=== PATIENT | male | born 1990 | race Caucasian/White ===

== ENCOUNTER 2020-05-05 03:46 | Emergency (ER) | payer SELFPAY ==
[2020-05-05] MEDS ORDERED: ALBUTEROL 2.5 MG/3 ML NEB SOL ONE (04:24)
[2020-05-05] MEDS ORDERED: IPRATROPIUM BROM 0.5MG/2.5ML ONE (04:24)
[2020-05-05] MEDS ORDERED: predniSONE 20 MG TAB ONE (04:32)
--- NOTE | 2020-05-05 05:42 | ER ---
Nurse's Notes [facility] Name: Kishor Hagen Age: 30 yrs Sex: Male : 1990 Arrival Date: 05/05/2020 Time: 03:47 Bed 5 Private MD: Diagnosis: Asthma Exacerbation Presentation: 05/05 04:07 Chief complaint: Patient states: Reports breathing difficulty x 3 days, hx of asthma; lp1 States shortness of breath, dry cough; Denies fever. Coronavirus screen: cough unrelated to allergies, difficulty breathing. Ebola Screen: No symptoms or risks identified at this time. Initial Sepsis Screen: Does the patient meet any 2 criteria? No. Patient's initial sepsis screen is negative. Does the patient have a suspected source of infection? No. Patient's initial sepsis screen is negative. Risk Assessment: Do you want to hurt yourself or someone else? Patient reports no desire to harm self or others. Onset of symptoms was May 05, 2020. 04:07 Method Of Arrival: Ambulatory lp1 04:07 Acuity: OMAIRA 3 lp1 Historical: - Allergies: 04:09 No Known Allergies; lp1 - Home Meds: 04:09 None [Active]; lp1 - PMHx: 04:09 Anxiety; Bipolar disorder; Asthma; Hepatitis; lp1 - PSHx: 04:09 None; lp1 - Immunization history:: Adult Immunizations up to date. - Social history:: Smoking status: Patient reports the use of cigarette tobacco products, smokes one pack cigarettes per day. Screenin:10 Abuse screen: Denies threats or abuse. Denies injuries from another. Nutritional lp1 screening: No deficits noted. Tuberculosis screening: No symptoms or risk factors identified. Fall Risk None identified. Assessment: 04:09 General: Appears in no apparent distress. Behavior is appropriate for age. Pain: Denies lp1 pain. Neuro: Level of Consciousness is awake, alert, obeys commands, Oriented to person, place, time, situation. Cardiovascular: Patient's skin is warm and dry. Respiratory: Reports shortness of breath on exertion cough that is dry, Airway is patent Trachea midline Respiratory effort is even, Respiratory pattern is regular, Breath sounds are clear bilaterally. GI: No signs and/or symptoms were reported involving the gastrointestinal system. : No signs and/or symptoms were reported regarding the genitourinary system. EENT: No signs and/or symptoms were reported regarding the EENT system. Derm: Skin is pink, warm \T\ dry. Musculoskeletal: No deficits noted. 05:30 Reassessment: Patient appears in no apparent distress at this time. Patient and/or mg2 family updated on plan of care and expected duration. Pain level reassessed. Patient is alert, oriented x 3, equal unlabored respirations, skin warm/dry/pink. Vital Signs: 04:07 BP 154 / 98; Pulse 75; Resp 20; Temp 98(O); Pulse Ox 100% on R/A; Weight 90.72 kg (R); lp1 Height 5 ft. 11 in. (180.34 cm); 05:30 BP 122 / 73; Pulse 76; Resp 18; Pulse Ox 99% on R/A; mg2 04:07 Body Mass Index 27.89 (90.72 kg, 180.34 cm) lp1 ED Course: 03:47 Patient arrived in ED. bp1 03:54 Daquan Garcia MD is Attending Physician. [facility] 04:07 Gregoria Hancock, RN is Primary Nurse. lp1 04:09 Triage completed. lp1 04:09 Arm band placed on. lp1 04:11 Patient has correct armband on for positive identification. lp1 04:15 No provider procedures requiring assistance completed. Flu and/or RSV swab sent to lab. mg2 Strep swab sent to lab. Patient did not have IV access during this emergency room visit. 04:22 Chest Single View XRAY In Process Unspecified. EDMS Administered Medications: 04:15 Drug: Albuterol - atroVENT (3:1) (2.5 mg - 0.5 mg) 3 ml Route: Nebulizer; mg2 05:48 Follow up: Response: No adverse reaction mg2 04:22 Drug: predniSONE 60 mg Route: PO; mg2 05:48 Follow up: Response: No adverse reaction mg2 Outcome: 05:40 Discharge ordered by . [facility] 05:51 Discharged to home ambulatory. lp1 05:51 Condition: good 05:51 Discharge instructions given to patient, Instructed on discharge instructions, follow up and referral plans. medication usage, Demonstrated understanding of instructions, follow-up care, medications, Prescriptions given X 3. 05:51 Patient left the ED. lp1 Signatures: Dispatcher [employer] EDGregoria Figueroa, DENNIS RN lp1 Kit Minor, DENNIS RN mg2 Kary Zamudio Maurice, MD MD 7 Corrections: (The following items were deleted from the chart) 05:32 05:30 Pulse 76bpm; Resp 18bpm; Pulse Ox 99% RA; mg2 mg2 05:50 05:50 BP 120 / 72; Pulse 70bpm; Resp 18bpm; Pulse Ox 100% RA; lp1 lp1
--- NOTE | 2020-05-05 05:42 | EDPHYS ---
Physician Documentation [facility] Name: Kishor Hagen Age: 30 yrs Sex: Male : 1990 Arrival Date: 05/05/2020 Time: 03:47 Bed 5 Private MD: ED Physician Daquan Garcia HPI: 05/05 04:18 This 30 yrs old Male presents to ER via Ambulatory with complaints of mh7 Breathing Difficulty. 04:18 The patient has shortness of breath with light activity. Onset: The symptoms/episode mh7 began/occurred 3 day(s) ago. Duration: The symptoms are continuous. 04:19 The patient's shortness of breath is aggravated by coughing, light activity, is mh7 alleviated by nothing. Associated signs and symptoms: Pertinent positives: productive cough, Pertinent negatives: chest pain, diaphoresis, dizziness, fever, hemoptysis, loss of consciousness, nausea, numbness in extremities, visual changes, vomiting. Severity of symptoms: At their worst the symptoms were moderate yesterday, in the emergency department the symptoms are unchanged. The patient has experienced similar episodes in the past, multiple times. Historical: - Allergies: 04:09 No Known Allergies; lp1 - Home Meds: 04:09 None [Active]; lp1 - PMHx: 04:09 Anxiety; Bipolar disorder; Asthma; Hepatitis; lp1 - PSHx: 04:09 None; lp1 - Immunization history:: Adult Immunizations up to date. - Social history:: Smoking status: Patient reports the use of cigarette tobacco products, smokes one pack cigarettes per day. ROS: 04:19 Constitutional: Negative for fever, chills, and weight loss, Eyes: Negative for injury, mh7 pain, redness, and discharge, ENT: Negative for injury, pain, and discharge, Neck: Negative for injury, pain, and swelling, Cardiovascular: Negative for chest pain, palpitations, and edema, Abdomen/GI: Negative for abdominal pain, nausea, vomiting, diarrhea, and constipation, Back: Negative for injury and pain, : Negative for injury, bleeding, discharge, and swelling, MS/Extremity: Negative for injury and deformity, Skin: Negative for injury, rash, and discoloration, Neuro: Negative for headache, weakness, numbness, tingling, and seizure, Psych: Negative for depression, anxiety, suicide ideation, homicidal ideation, and hallucinations, Allergy/Immunology: Negative for hives, rash, and allergies, Endocrine: Negative for neck swelling, polydipsia, polyuria, polyphagia, and marked weight changes, Hematologic/Lymphatic: Negative for swollen nodes, abnormal bleeding, and unusual bruising. Exam: 04:19 Constitutional: This is a well developed, well nourished patient who is awake, alert, mh7 and in no acute distress. Head/Face: Normocephalic, atraumatic. Eyes: Pupils equal round and reactive to light, extra-ocular motions intact. Lids and lashes normal. Conjunctiva and sclera are non-icteric and not injected. Cornea within normal limits. Periorbital areas with no swelling, redness, or edema. Neck: Trachea midline, no thyromegaly or masses palpated, and no cervical lymphadenopathy. Supple, full range of motion without nuchal rigidity, or vertebral point tenderness. No Meningismus. Chest/axilla: Normal chest wall appearance and motion. Nontender with no deformity. No lesions are appreciated. Cardiovascular: Regular rate and rhythm with a normal S1 and S2. No gallops, murmurs, or rubs. Normal PMI, no JVD. No pulse deficits. 04:19 Abdomen/GI: Soft, non-tender, with normal bowel sounds. No distension or tympany. No guarding or rebound. No evidence of tenderness throughout. Back: No spinal tenderness. No costovertebral tenderness. Full range of motion. Skin: Warm, dry with normal turgor. Normal color with no rashes, no lesions, and no evidence of cellulitis. MS/ Extremity: Pulses equal, no cyanosis. Neurovascular intact. Full, normal range of motion. Neuro: Awake and alert, GCS 15, oriented to person, place, time, and situation. Cranial nerves II-XII grossly intact. Motor strength 5/5 in all extremities. Sensory grossly intact. Cerebellar exam normal. Normal gait. Psych: Awake, alert, with orientation to person, place and time. Behavior, mood, and affect are within normal limits. 04:19 Respiratory: the patient does not display signs of respiratory distress, Respirations: prolonged exhalation, that is mild, Breath sounds: rhonchi, that are mild, are scattered, wheezing: expiratory that is mild, is scattered, Respiratory rate: 20 Vital Signs: 04:07 BP 154 / 98; Pulse 75; Resp 20; Temp 98(O); Pulse Ox 100% on R/A; Weight 90.72 kg (R); lp1 Height 5 ft. 11 in. (180.34 cm); 05:30 BP 122 / 73; Pulse 76; Resp 18; Pulse Ox 99% on R/A; mg2 04:07 Body Mass Index 27.89 (90.72 kg, 180.34 cm) lp1 MDM: 04:06 Patient medically screened. [facility] 05:38 Differential diagnosis: Anemia Anxiety Reaction asthma, Bronchitis pneumonia, reactive [facility] airway disease. Data reviewed: vital signs, nurses notes, lab test result(s), Flu: negative radiologic studies, plain films. Data interpreted: Pulse oximetry: on room air is 99 %. Interpretation: normal. Counseling: I had a detailed discussion with the patient and/or guardian regarding: the historical points, exam findings, and any diagnostic results supporting the discharge/admit diagnosis, lab results, radiology results, the need for outpatient follow up, to return to the emergency department if symptoms worsen or persist or if there are any questions or concerns that arise at home. Response to treatment: the patient's symptoms have resolved after treatment, the patient's blood pressure is in an acceptable range, mental status has returned to baseline, the patient no longer shows bradycardia, the patient is not short of breath, the patient is not tachycardic, the patient's pain is gone, the patient's temperature has normalized. 05/05 04:09 Order name: Influenza Screen (a \T\ B) [facility] 05/05 04:09 Order name: Strep [facility] 05/05 04:08 Order name: Chest Single View XRAY [facility] 05/05 05:40 Order name: Throat Culture EDMS Administered Medications: 04:15 Drug: Albuterol - atroVENT (3:1) (2.5 mg - 0.5 mg) 3 ml Route: Nebulizer; mg2 05:48 Follow up: Response: No adverse reaction mg2 04:22 Drug: predniSONE 60 mg Route: PO; mg2 05:48 Follow up: Response: No adverse reaction mg2 Disposition: 05/05/20 05:40 Discharged to Home. Impression: Asthma Exacerbation. - Condition is Stable. - Discharge Instructions: Asthma, Adult, [id number]. - Prescriptions for Tessalon Perles 100 mg Oral Capsule - take 1 capsule by ORAL route every 8 hours As needed; 15 capsule. Prednisone 20 mg Oral Tablet - take 2 tablet by ORAL route once daily for 5 days; 10 tablet. Albuterol Sulfate 90 mcg/actuation - inhale 1-2 puff by INHALATION route every 4-6 hours; 1 Inhaler. - Medication Reconciliation Form, Thank You Letter, Antibiotic Education, Prescription Opioid Use form. - Follow up: Private Physician; When: 1 - 2 days; Reason: Worsening of condition, Recheck today's complaints, Continuance of care, Re-evaluation by your physician. - Problem is an acute exacerbation. - Symptoms have improved. Signatures: Dispatcher [employer] EDMS Gregoria Hancock RN RN lp1 Kit Minor RN RN mg2 Daquan Garcia MD MD mh7 Corrections: (The following items were deleted from the chart) 05:51 05:40 05/05/2020 05:40 Discharged to Home. Impression: Asthma Exacerbation. Condition lp1 is Stable. Forms are Medication Reconciliation Form, Thank You Letter, Antibiotic Education, Prescription Opioid Use. Follow up: Private Physician; When: 1 - 2 days; Reason: Worsening of condition, Recheck today's complaints, Continuance of care, Re-evaluation by your physician. Problem is an acute exacerbation. Symptoms have improved. mh7
[2020-05-05 05:57] VITALS: TEMP 98
[2020-05-05 05:58] VITALS: BP 122/73; O2SAT 99
--- NOTE | 2020-05-05 08:11 | RAD REPORT ---
EXAM DESCRIPTION: Sarina Single View05/05/2020 4:22 am CLINICAL HISTORY: Cough COMPARISON: 2016 FINDINGS: The lungs appear clear of acute infiltrate. The heart is normal size IMPRESSION: No acute abnormalities displayed
== END 2020-05-05 05:51 | disposition home or self-care (01) ==
LOC: ER 03:46
DX: J45.901 Unspecified asthma with (acute) exacerbation (principal); F17.210 Nicotine dependence, cigarettes, uncomplicated
CPT/HCPCS: 71045; 87070; 87081; 87804; 99284; J7512

== ENCOUNTER 2020-05-09 12:45 | Emergency (ER) | payer SELFPAY ==
[2020-05-09] MEDS ORDERED: NA CHLORIDE 0.9% 1,000 ML ONE (13:15)
[2020-05-09 13:35] LABS: BUN Blood Urea Nitrogen 8 mg/dL (7-18); Bicarbonate 30 mmol/L (21-32); Glucose Level 126 mg/dL (74-106); Potassium 3.8 mmol/L (3.5-5.1); Sodium Level 140 mmol/L (136-145)
[2020-05-09 13:57] LABS: Absolute Lymphocytes (CBC) 2.1 K/uL (0.7-4.9); Basophils % 0.5 % (0-1.3); Hematocrit 37.2 % (39.6-49.0); Lymphocytes % 20.7 % (15.3-44.8); MPV 7.2 fL (7.6-11.3); RBC Red Blood Cell Count 4.07 M/uL (4.33-5.43)
--- NOTE | 2020-05-09 18:26 | EDPHYS ---
Physician Documentation [facility] Name: Kishor Hagen Age: 30 yrs Sex: Male : 1990 Arrival Date: 05/09/2020 Time: 12:48 Bed 19 Private MD: ED Physician Cooper Wolff HPI: 05/09 13:27 This 30 yrs old Male presents to ER via EMS with complaints of sleepy. rn 13:27 The patient presents with decreased responsiveness. Onset: The symptoms/episode rn began/occurred today. Possible causes: drug use. Associated signs and symptoms: Pertinent negatives: abdominal pain, chest pain, combativeness, confusion, headache, seizure, shortness of breath, vertigo, vomiting, weakness. Current symptoms: In the emergency department the patient's symptoms are unchanged from the initial presentation. It is unknown whether or not the patient has had similar symptoms in the past. The patient has not recently seen a physician. Pt reports taking Ambien x 2 and drinking ETOH earlier today, no trauma, reports feels sleepy, not sure who called 911, narcan tried without effect. Pt denies pain. No fever/cough/sob/chest pain/abd pain/vomiting/diarrhea. . Historical: - Allergies: 12:52 No Known Allergies; ss - PMHx: 12:52 Anxiety; Asthma; Bipolar disorder; Hepatitis; ss - PSHx: 12:52 None; ss - Immunization history:: Adult Immunizations unknown. - Social history:: Patient uses alcohol, street drugs, marijuana, Smoking status: . - Family history:: not pertinent. - Hospitalizations: : No recent hospitalization is reported. ROS: 13:27 Constitutional: Negative for fever, chills, and weight loss, Eyes: Negative for injury, rn pain, redness, and discharge, ENT: Negative for injury, pain, and discharge, Neck: Negative for injury, pain, and swelling, Cardiovascular: Negative for chest pain, palpitations, and edema, Respiratory: Negative for shortness of breath, cough, wheezing, and pleuritic chest pain, Abdomen/GI: Negative for abdominal pain, nausea, vomiting, diarrhea, and constipation, Back: Negative for injury and pain, : Negative for injury, bleeding, discharge, and swelling, MS/Extremity: Negative for injury and deformity, Skin: Negative for injury, rash, and discoloration, Neuro: Negative for headache, weakness, numbness, tingling, and seizure. Exam: 13:27 Constitutional: This is a well developed, well nourished patient who is somnolent but rn awakens to voice and tactile stimulation. Head/Face: Normocephalic, atraumatic. Eyes: Pupils equal round and reactive to light, extra-ocular motions intact. Periorbital areas with no swelling, redness, or edema. ENT: dry MM Neck: Trachea midline, no thyromegaly or masses palpated, and no cervical lymphadenopathy. Supple, full range of motion without nuchal rigidity, or vertebral point tenderness. No Meningismus. Cardiovascular: Regular rate and rhythm. No pulse deficits. Respiratory: Slow respiratory rate, speaking full sentences. Abdomen/GI: soft, non-tender MS/ Extremity: Pulses equal, no cyanosis. Neurovascular intact. Full, normal range of motion. Equal circumference. Neuro: Awake, somnolent, moving all 4 extremities Vital Signs: 12:48 BP 126 / 80; Pulse 96; Resp 11; Temp 98.1(TE); Pulse Ox 96% on R/A; Weight 90.72 kg; ss Pain 0/10; 13:36 BP 141 / 70; Pulse 77; Resp 12; Pulse Ox 99% on 2 lpm NC; ss 14:25 BP 121 / 92; Pulse 72; Resp 12; Pulse Ox 96% on 2 lpm NC; tw2 15:16 BP 124 / 93; Pulse 76; Resp 12; Pulse Ox 100% on 2 lpm NC; tw2 16:10 BP 112 / 79; Pulse 72; Resp 10; Pulse Ox 100% on 2 lpm NC; tw2 17:20 BP 120 / 87; Pulse 75; Resp 14; Pulse Ox 100% on 2 lpm NC; tw2 18:14 BP 131 / 91; Pulse 76; Resp 15; Pulse Ox 97% on R/A; tw2 MDM: 12:48 Patient medically screened. rn 13:27 ED course: Per report, patient went ot convenience store earlier and sent away due to rn signs of intoxication, then when came back to store, police called, who called for EMS given drowsiness. . 18:13 Differential Diagnosis: overdose, volume depletion, drug use, ETOH intoxication. Data rn reviewed: vital signs, nurses notes, lab test result(s), and as a result, I will discharge patient. Counseling: I had a detailed discussion with the patient and/or guardian regarding: the historical points, exam findings, and any diagnostic results supporting the discharge/admit diagnosis, lab results, the need for outpatient follow up, to return to the emergency department if symptoms worsen or persist or if there are any questions or concerns that arise at home. Response to treatment: the patient's symptoms have mildly improved after treatment, and as a result, I will discharge patient. ED course: Pt improved, more alert, improving RR, no oxygen requirement, stable vitals, will call for ride and dc home. Reports "those ambiens kicked my ass". Had discussion with him regarding danger of overdosing on sedatives, is aware and plans to not do that again. . 18:21 ED course: Pt much more awake, is taking off BP cuff and standing, stable vitals. rn Patient wants to leave, is hemodynamically stable. Family member here concerned about how she is going to deal with him at home. Pt is ambulatory and walks without assistance. Insists on leaving, will dc patient per his wishes. Talked again with him about prescription drug safety. Family member reports planning on dropping him off at hotel. . 05/09 12:50 Order name: CBC with Diff; Complete Time: 16:14 05/09 12:50 Order name: Basic Metabolic Panel; Complete Time: 16:14 05/09 12:50 Order name: IV Start; Complete Time: 13:01 05/09 12:50 Order name: Urine Drug Screen 05/09 12:50 Order name: ETOH Level; Complete Time: 16:14 05/09 12:50 Order name: Cardiac monitoring; Complete Time: 13:07 05/09 12:50 Order name: Oxygen Per Protocol; Complete Time: 13:00 05/09 13:23 Order name: Labs - recollect needed: recollect purple top; Complete Time: 13:29 eb Administered Medications: 13:04 Drug: NS 0.9% 1000 ml Route: IV; Rate: 1000 ml; Site: left antecubital; ss 14:20 Follow up: Response: No adverse reaction; IV Status: Completed infusion; IV Intake: tw2 1000ml Disposition: 05/09/20 18:25 Discharged to Home. Impression: Sedative, hypnotic or anxiolytic abuse with intoxication. - Condition is Stable. - Discharge Instructions: Accidental Overdose. - Medication Reconciliation Form, Thank You Letter, Antibiotic Education, Prescription Opioid Use form. - Follow up: Private Physician; When: As needed; Reason: Recheck today's complaints, Re-evaluation by your physician. - Problem is new. - Symptoms have improved. Signatures: Dispatcher [employer] EDMS Cooper Wolff MD MD rn Smirch, Shelby, RN RN ss Patt Bearden RN RN tw2 Racheal Child Corrections: (The following items were deleted from the chart) 18:40 18:25 05/09/2020 18:25 Discharged to Home. Impression: Sedative, hypnotic or anxiolytic tw2 abuse with intoxication. Condition is Stable. Forms are Medication Reconciliation Form, Thank You Letter, Antibiotic Education, Prescription Opioid Use. Follow up: Private Physician; When: As needed; Reason: Recheck today's complaints, Re-evaluation by your physician. Problem is new. Symptoms have improved. rn
--- NOTE | 2020-05-09 18:26 | ER ---
Nurse's Notes [facility] Name: Kishor Hagen Age: 30 yrs Sex: Male : 1990 Arrival Date: 05/09/2020 Time: 12:48 Bed 19 Private MD: Diagnosis: Sedative, hypnotic or anxiolytic abuse with intoxication Presentation: 05/09 12:48 Chief complaint: EMS states: Pt reportedly came to gas station and appeared intoxicated ss so gas station personnel called PD. Upon arrival to ED pt appears extremely drowsy. Responsive to loud verbal stimuli. Admits to drinking alcohol, smoking marijuana and taking 2 Ambien tablets today. Coronavirus screen: Client denies travel out of the [place] in the last 14 days. Ebola Screen: Patient denies exposure to infectious person. Patient denies travel to an Ebola-affected area in the 21 days before illness onset. Initial Sepsis Screen: Does the patient meet any 2 criteria? No. Patient's initial sepsis screen is negative. Does the patient have a suspected source of infection? No. Patient's initial sepsis screen is negative. Risk Assessment: Do you want to hurt yourself or someone else? Patient reports no desire to harm self or others. Onset of symptoms was May 09, 2020. 12:48 Method Of Arrival: EMS: [facility] 12:48 Acuity: OMAIRA 2 ss Triage Assessment: 12:50 General: Appears unkempt, Behavior is drowsy. tw2 Historical: - Allergies: 12:52 No Known Allergies; ss - PMHx: 12:52 Anxiety; Asthma; Bipolar disorder; Hepatitis; ss - PSHx: 12:52 None; ss - Immunization history:: Adult Immunizations unknown. - Social history:: Patient uses alcohol, street drugs, marijuana, Smoking status: . - Family history:: not pertinent. - Hospitalizations: : No recent hospitalization is reported. Screenin:37 Abuse screen: Denies threats or abuse. Nutritional screening: No deficits noted. ss Tuberculosis screening: No symptoms or risk factors identified. Fall Risk None identified. Assessment: 12:50 General: Behavior is drowsy, Reports self medication today with ETOH, marijuana and ss ambien tablets x 2. Denies SI/ HI. Pain: Denies pain. Neuro: Level of Consciousness is obtunded, responsive to loud verbal stimuli. . Cardiovascular: Pulses are palpable in right radial artery, right posterior tibial artery, left radial artery and left posterior tibial artery Rhythm is sinus tachycardia. Respiratory: Airway is patent Trachea midline Respiratory effort is even, Respiratory pattern is snoring. GI: Abdomen is non-distended. : No signs and/or symptoms were reported regarding the genitourinary system. EENT: Oral mucosa is moist. Derm: Skin is healthy with good turgor, Skin is pink, warm \\T\\ dry. normal. Musculoskeletal: Swelling absent. 13:07 Reassessment: applied NC \\T\\ 2L/min as patient begins to snore and desats to 90%. Pt ss awakes with loud verbal stimuli briefly, then drifts back off to sleep. Pt remains on monitors. Awaiting to obtain urine specimen and awaiting labs results at this time. 13:35 Reassessment: No changes from previously documented assessment. Patient and/or family ss updated on plan of care and expected duration. Pain level reassessed. pt awake with loud verbal stimuli briefly, tries to open eyes, then drifts back to sleep. 14:24 Reassessment: No changes from previously documented assessment. Patient and/or family tw2 updated on plan of care and expected duration. Pain level reassessed. pt will awake and attempt to open his eyes with loud verbal stimuli, then drifts back off to sleep. 15:16 Reassessment: No changes from previously documented assessment. Patient and/or family tw2 updated on plan of care and expected duration. Pain level reassessed. pt tries to open his eyes with loud verbal stimuli, then drifts right back to sleep. 16:09 Reassessment: No changes from previously documented assessment. Patient and/or family tw2 updated on plan of care and expected duration. Pain level reassessed. pt will wake and attempt to open eyes with verbal stimuli, then drifts promptly back to sleep. 17:19 Reassessment: No changes from previously documented assessment. Patient and/or family tw2 updated on plan of care and expected duration. Pain level reassessed. pt will wake up and attempt to open eyes and talk with verbal stimuli, then pt drifts back to sleep with snoring, asked pt for urine sample at this time, pt states "i cant". 18:13 Reassessment: pts grandmother at bedside asking "is he ready to go home", pt still tw2 drowsy but sitting upright on his own with eyes open talking to grandmother at this time, speech still slurred, provider notified. 18:20 Reassessment: pts grandmother states "i dont want to take him home like this, he wants tw2 to talk with his dad who has been for 2 years and i dont know what i am going to do with him". 18:24 Reassessment: pt standing up at bedside states "she can just drop me off at a motel", tw2 grandmother states "i can do that", provider notified. 18:29 Reassessment: pt ambulates to restroom with urinal at this time. tw2 18:39 Reassessment: No changes from previously documented assessment. Patient and/or family tw2 updated on plan of care and expected duration. Pain level reassessed. Vital Signs: 12:48 BP 126 / 80; Pulse 96; Resp 11; Temp 98.1(TE); Pulse Ox 96% on R/A; Weight 90.72 kg; ss Pain 0/10; 13:36 BP 141 / 70; Pulse 77; Resp 12; Pulse Ox 99% on 2 lpm NC; ss 14:25 BP 121 / 92; Pulse 72; Resp 12; Pulse Ox 96% on 2 lpm NC; tw2 15:16 BP 124 / 93; Pulse 76; Resp 12; Pulse Ox 100% on 2 lpm NC; tw2 16:10 BP 112 / 79; Pulse 72; Resp 10; Pulse Ox 100% on 2 lpm NC; tw2 17:20 BP 120 / 87; Pulse 75; Resp 14; Pulse Ox 100% on 2 lpm NC; tw2 18:14 BP 131 / 91; Pulse 76; Resp 15; Pulse Ox 97% on R/A; tw2 ED Course: 12:48 Patient arrived in ED. ss 12:48 Cooper Wolff MD is Attending Physician. rn 12:51 Triage completed. ss 12:52 Arm band placed on right wrist. ss 13:07 Patient has correct armband on for positive identification. Bed in low position. Call ss light in reach. Side rails up X2. environmental monitoring specialist on. Pulse ox on. NIBP on. Warm blanket given. 13:07 Maintain EMS IV. Dressing intact. Good blood return noted. Site clean \\T\\ dry. Gauge \\T\\ ss site: 20 gauge in L AC. Flushed. Oxygen administration via nasal cannula \\T\\ 2L/min. 13:22 Lexi Doran, RN is Primary Nurse. ss 18:29 IV discontinued, intact, bleeding controlled, No redness/swelling at site. Pressure tw2 dressing applied. 18:39 Urine Drug Screen Sent. tw2 18:39 No provider procedures requiring assistance completed. tw2 Administered Medications: 13:04 Drug: NS 0.9% 1000 ml Route: IV; Rate: 1000 ml; Site: left antecubital; ss 14:20 Follow up: Response: No adverse reaction; IV Status: Completed infusion; IV Intake: tw2 1000ml Intake: 14:20 IV: 1000ml; Total: 1000ml. tw2 Outcome: 18:25 Discharge ordered by . rn 18:39 Discharged to home ambulatory, with family. tw2 18:39 Condition: stable 18:39 Discharge instructions given to patient, family, Instructed on discharge instructions, follow up and referral plans. Demonstrated understanding of instructions, follow-up care. 18:40 Patient left the ED. tw2 Signatures: Cooper Wolff MD MD rn Smirch, Shelby, RN RN Patt Bearden RN RN tw2
[2020-05-09 18:55] LABS: Barbiturates NEGATIVE (NEGATIVE); Benzodiazepines NEGATIVE (NEGATIVE); Cocaine NEGATIVE (NEGATIVE); METHAMPHETAM POSITIVE (NEGATIVE); Methadone NEGATIVE (NEGATIVE); Opiates POSITIVE (NEGATIVE); Phencyclidine NEGATIVE (NEGATIVE); THC Cannibis POSITIVE (NEGATIVE)
[2020-05-09 20:06] LABS: Urine Blood NEGATIVE (NEG); Urine Glucose NEGATIVE (NEG); Urine Protein NEGATIVE (NEG); Urine pH 5.5 (5.0-7.0)
[2020-05-10 04:48] VITALS: TEMP 98.1
[2020-05-10 05:05] VITALS: BP 131/91; O2SAT 97
== END 2020-05-09 18:40 | disposition home or self-care (01) ==
LOC: ER 12:45
DX: F13.129 Sedative, hypnotic or anxiolytic abuse with intoxication, unspecified (principal)
CPT/HCPCS: 36415; 80048; 80307; 80320; 81003; 85025; 96360; 99285; J7030

== ENCOUNTER 2021-12-02 14:47 | Emergency (ER) | payer SELFPAY ==
--- NOTE | 2021-12-02 15:35 | ER ---
Nurse's Notes [facility] Name: Kishor Hagen Age: 31 yrs Sex: Male : 1990 Arrival Date: 12/02/2021 Time: 14:48 Bed Waiting Private MD: Diagnosis: Presentation: 12/02 14:52 Chief complaint: Patient states: earlier today i got really short of breath and tw2 lightheaded and my hr increased and i got real dizzy like i was going to pass out. i dont know if its anxiety. i can hardly walk on my LEFT knee about 2 weeks. Coronavirus screen: At this time, the client does not indicate any symptoms associated with coronavirus-19. Ebola Screen: Patient denies travel to an Ebola-affected area in the 21 days before illness onset. Initial Sepsis Screen: Does the patient meet any 2 criteria? HR > 90 bpm. No. Patient's initial sepsis screen is negative. Does the patient have a suspected source of infection? No. Patient's initial sepsis screen is negative. Risk Assessment: Do you want to hurt yourself or someone else? Patient reports no desire to harm self or others. Onset of symptoms was December 02, 2021. 14:52 Method Of Arrival: Ambulatory tw2 14:52 Acuity: OMAIRA 3 tw2 Triage Assessment: 14:54 General: Appears in no apparent distress. Behavior is calm, cooperative, appropriate tw2 for age. Pain: Complains of pain in left knee. Respiratory: Reports shortness of breath at rest "it just came on earlier today" Onset: The symptoms/episode began/occurred suddenly, the patient has mild shortness of breath. Historical: - Allergies: 14:53 No Known Allergies; tw2 - Home Meds: 14:53 None [Active]; tw2 - PMHx: 14:53 Anxiety; Asthma; Bipolar disorder; Hepatitis; C; tw2 - PSHx: 14:53 None; tw2 - Immunization history:: Client reports having NOT received the Covid vaccine. - Social history:: Smoking status: Patient reports the use of cigarette tobacco products, smokes one-half pack cigarettes per day. Assessment: 15:27 Reassessment: pt not in lobby of ER at this time. tw2 15:35 Reassessment: pt not in ER lobby at this time. security unaware if pt left or not. tw2 Vital Signs: 14:52 BP 111 / 82; Pulse 104; Resp 18; Temp 98.5(TE); Pulse Ox 100% on R/A; Weight 99.79 kg tw2 (R); Height 5 ft. 11 in. (180.34 cm); Pain 8/10; 14:52 Body Mass Index 30.68 (99.79 kg, 180.34 cm) tw2 14:52 LEFT knee tw2 ED Course: 14:48 Patient arrived in ED. rg4 14:53 Triage completed. tw2 14:54 Arm band placed on. tw2 14:59 Rafael Thompson PA is PHCP. cp 14:59 Kali Kline MD is Attending Physician. cp Administered Medications: No medications were administered Outcome: 15:35 Patient left the ED. tw2 Signatures: Rafael Thompson PA PA cp Patt Bearden RN RN tw2 Marielos Ferrera rg4
[2021-12-02 15:49] VITALS: BP 111/82; TEMP 98.5; O2SAT 100
--- NOTE | 2021-12-03 15:36 | EDPHYS ---
Physician Documentation [facility] Name: Kishor Hagen Age: 31 yrs Sex: Male : 1990 Arrival Date: 12/02/2021 Time: 14:48 Bed Waiting Private MD: ED Physician Kali Kline Historical: - Allergies: 12/02 14:53 No Known Allergies; tw2 - Home Meds: 14:53 None [Active]; tw2 - PMHx: 14:53 Anxiety; Asthma; Bipolar disorder; Hepatitis; C; tw2 - PSHx: 14:53 None; tw2 - Immunization history:: Client reports having NOT received the Covid vaccine. - Social history:: Smoking status: Patient reports the use of cigarette tobacco products, smokes one-half pack cigarettes per day. Vital Signs: 14:52 BP 111 / 82; Pulse 104; Resp 18; Temp 98.5(TE); Pulse Ox 100% on R/A; Weight 99.79 kg tw2 (R); Height 5 ft. 11 in. (180.34 cm); Pain 8/10; 14:52 Body Mass Index 30.68 (99.79 kg, 180.34 cm) tw2 14:52 LEFT knee tw2 MDM: 15:15 ED course: Patient left before being seen by provider. cp Administered Medications: No medications were administered Disposition Summary: 12/02/21 15:35 Eloped Disposition: post triage evaluation and consult tw2 Reason: (see nurse's notes) tw2 Signatures: Rafael Thompson PA PA cp Wise, Tara RN RN tw2
== END 2021-12-02 15:35 | disposition left against medical advice (07) ==
LOC: ER 14:47
DX: R06.02 Shortness of breath (principal); Z53.21 Procedure and treatment not carried out due to patient leaving prior to being seen by health care provider
CPT/HCPCS: 99281